=== PATIENT | female | born 1975 ===

== ENCOUNTER 2016-11-30 15:41 | Emergency (ER) | payer OTHER ==
[2016-11-30 15:41] VITALS: BMI 24.7
--- NOTE | 2016-11-30 16:19 | C.PDOC ---
History Of Present Illness 41 y/o female c/o headache for gradual onset over 3 days. Patient also reports some associated nausea, photophobia, and pain down her left side, including her arm and leg, which is causing her trouble when ambulating. Patient with history of elevated prolactin and pituitary microadenoma, elevated blood pressure. Patient states she recently stopped all regular medications and currently not taking anything. Patient notes she has not taken anything for current headache. Otherwise, denies fever, chills, new weakness or numbness, vomiting, or other associated symptoms. Patient with history of migraine headaches. Time Seen by Provider: 11/30/16 15:56 Chief Complaint (Nursing): Headache History Per: Patient History/Exam Limitations: no limitations Onset/Duration Of Symptoms: Days Current Symptoms Are (Timing): Still Present Preceeding Symptoms: None, Known Migraine Symptoms. denies: Visual Disturbances Associated Symptoms: Photophobia, Nausea. denies: Vomiting, Extremity Weakness Recent travel outside of the [place]: No Past Medical History Reviewed: Historical Data, Nursing Documentation, Vital Signs Vital Signs: Last Vital Signs Temp 100.7 F H 11/30/16 15:44 Pulse 82 11/30/16 19:02 Resp 20 11/30/16 19:02 BP 114/78 11/30/16 19:02 Pulse Ox 98 11/30/16 19:26 - Medical History PMH: Asthma, HTN, Hypothyroidism, Migraine - [facility] Procedures ASPIRATION OF BREAST (01/30/14) DX ULTRASOUND-THORAX NEC (01/30/14) LAPAROSCOP LYSIS-PERITONEAL ADHES (08/07/13) LAPAROSCOP UNILAT OOPHORECTOMY (08/07/13) Family History: States: Unknown Family Hx - Social History Hx Tobacco Use: No Hx Alcohol Use: No Hx Substance Use: No - Immunization History Hx Tetanus Toxoid Vaccination: No Hx Influenza Vaccination: Yes Hx Pneumococcal Vaccination: No Review Of Systems Except As Marked, All Systems Reviewed And Found Negative. Constitutional: Negative for: Fever, Chills Cardiovascular: Negative for: Chest Pain Respiratory: Negative for: Cough, Shortness of Breath, Wheezing Gastrointestinal: Positive for: Nausea. Negative for: Vomiting, Abdominal Pain Musculoskeletal: Negative for: Neck Pain Skin: Negative for: Rash Neurological: Positive for: Headache. Negative for: Weakness, Numbness, Dizziness Physical Exam - Physical Exam Appears: Non-toxic, No Acute Distress Skin: Warm, Dry Head: Atraumatic, Normacephalic Eye(s): bilateral: PERRL, EOMI, Photophobia, Other (pain with left lateral gaze) Ear(s): Bilateral: Normal Nose: Normal Oral Mucosa: Moist Neck: Normal ROM, Supple Chest: Symmetrical Cardiovascular: Rhythm Regular Respiratory: Normal Breath Sounds, No Rales, No Rhonchi, No Wheezing Gastrointestinal/Abdominal: Soft, No Tenderness, No Guarding, No Rebound Back: Normal Inspection Extremity: Normal ROM, Capillary Refill (< 2 sec.) Neurological/Psych: Oriented x3, Normal Speech, Normal Cognition, Normal Cranial Nerves, Normal Motor, Normal Sensation ED Course And Treatment - Laboratory Results Result Diagrams: 11/30/16 16:33 11/30/16 16:33 Lab Interpretation: Normal O2 Sat by Pulse Oximetry: 98 (RA) Pulse Ox Interpretation: Normal - CT Scan/US MRI Pituitary Other Rad Studies (CT/US): Read By Radiologist, Radiology Report Reviewed CT/US Interpretation: FINDINGS: Brain: The optic chiasm is unremarkable without distortion or masses. No hemorrhage. No acute. infarct. Ventricles: Unremarkable. No ventriculomegaly. Bones/joints: Unremarkable. Sinuses: Unremarkable as visualized. No acute sinusitis. Mastoid air cells: Unremarkable as visualized. No mastoid effusion. Orbits: Unremarkable as visualized. Sella: The pituitary gland measures approximately 6.3 x 6.0 x 10 millimeter. The pituitary stalk. appears normal. There is no deviation of the pituitary stalk. No suprasellar masses seen. The. pituitary gland with homogeneous enhancement. No focal lesions are seen. IMPRESSION: No acute findings. No pituitary masses or focal lesions are seen. Enhancement of the pituitary gland. is homogeneous. No suprasellar masses. Progress Note: Treated with Tylenol and Ativan. Pituitary MRI ordered and reviewed. Reevaluation Time: 19:27 Reassessment Condition: Improved (Has mild residual headache but feels much better.) Disposition Counseled Patient/Family Regarding: Studies Performed, Diagnosis, Need For Followup - Disposition Referrals: Jennie Chu MD [Staff Provider] - Disposition: HOME/ ROUTINE Disposition Time: 19:28 Condition: IMPROVED Instructions: Acute Headache (ED) Print Language: PASHTO - Clinical Impression Clinical Impression: Headache - Scribe Statement The provider has reviewed the documentation as recorded by the Scribe Markel Gonzalezussa All medical record entries made by the Linda were at my direction and personally dictated by me. I have reviewed the chart and agree that the record accurately reflects my personal performance of the history, physical exam, medical decision making, and the department course for this patient. I have also personally directed, reviewed, and agree with the discharge instructions and disposition.
[2016-11-30 16:39] LABS: HEMOGLOBIN 13.1 g/dL (11.0-16.0); MEAN PLATELET VOLUME 9.1 fL (7.2-11.7); WHITE BLOOD COUNT 4.8 K/uL (4.8-10.8)
[2016-11-30 16:50] LABS: ALBUMIN 4.6 g/dL (3.5-5.0)
[2016-11-30 16:52] LABS: AST/SGOT 39 U/L (14-36); GFR AFRICAN-AMERICAN > 60; GFR NON-AFRICAN AMERICAN > 60
[2016-11-30 16:53] LABS: ALB/GLOB RATIO 1.2 (1.0-2.1); ALT/SGPT 38 U/L (9-52); BASO % 0.5 % (0.0-2.0); BLOOD UREA NITROGEN 8 mg/dL (7-17); CALCIUM 8.7 mg/dl (8.6-10.4); EOS % 0.2 % (0.0-4.0); LYMPH % 20.9 % (20.0-40.0); MEAN CELL VOLUME 86.4 fL (81.0-99.0); MEAN CORPUSCULAR HEMOGLOBIN 28.3 pg (27.0-31.0); MEAN CORPUSCULAR HGB CONC 32.8 g/dL (33.0-37.0); MONO # 0.9 K/uL (0.0-0.8); MONO % 18.6 % (0.0-10.0); NEUT # 2.9 K/uL (1.8-7.0); NEUT % 59.8 % (50.0-75.0); NRBC % 0.2 % (0.0-2.0); RBC 4.65 Mil/uL (3.80-5.20); RED CELL DISTRIBUTION WIDTH 12.6 % (11.5-14.5)
[2016-11-30] MEDS ORDERED: Gadodiamide 287 MG/ML VIAL (15ML) IV ONE (18:25)
[2016-11-30 19:02] VITALS: BP 114/78; PULSE 82; RESP 20
[2016-11-30 19:26] VITALS: O2SAT 98
[2016-11-30 19:42] VITALS: TEMP 97.9
--- NOTE | 2016-12-01 14:11 | MRI ---
PROCEDURE: MRI BRAIN AND PITUITARY WITH AND WITHOUT CONTRAST HISTORY: Hx microadenoma, recent headache COMPARISON: 09/09/2015 TECHNIQUE: Multiplanar, multisequence MR images of the pituitary glad were obtained, including high resolution sagittal T2 and dynamic, multiphasic contrast coronal T1 weighted images of the sellar turcica. FINDINGS: PITUITARY GLAND: The pituitary gland is normal in size. There is redemonstration of a 4 x 11 x 8 mm T1 hyperintense and T2 hypointense relatively hypoenhancing lesion in the midline and to the left within the pituitary gland, not significantly changed since the prior examination. OPTIC CHIASM: The optic chiasm is normal in appearance. SUPRASELLAR CISTERN: Normal. CAVERNOUS SINUSES: There are normal signal voids in the cavernous carotid arteries. There is normal enhancement in the cavernous sinuses. VENTRICLES: No hydrocephalus. OTHER FINDINGS: None. IMPRESSION: Little interval change in known 4 x 11 x 8 mm hyper enhancing lesion in the midline and to the left of the pituitary gland. The differential considerations include Rathke's cleft cyst and hemorrhage in a microadenoma or pituitary gland. There is a discrepancy with preliminary [facility] report. The final report was discussed with CASIE Barton on 12/01/2016 at 2:05 p.m.
== END 2016-11-30 19:41 | disposition home or self-care (01) ==
LOC: C.ER 15:41
DX: R51 Headache (principal)
CPT/HCPCS: 70553; 80053; 84703; 85025; 96374; 99285; A9579; J2060

== ENCOUNTER 2017-06-23 11:21 | Emergency (ER) | payer OTHER ==
[2017-06-23 11:21] VITALS: BMI 24.7
[2017-06-23 11:55] VITALS: O2SAT 100
--- NOTE | 2017-06-23 12:39 | C.PDOC ---
History Of Present Illness 41 year old female presents to the ED c/o left shoulder pain radiating to her upper left back for the past 3 days. 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 Patient denies fever, chills, recent fall, injury, trauma, weakness, numbness. Chief Complaint (Nursing): Upper Extremity Problem/Injury History Per: Patient History/Exam Limitations: no limitations Onset/Duration Of Symptoms: Days Current Symptoms Are (Timing): Still Present Quality: "Pain" Exacerbating Factor(s): Movement Recent travel outside of the [place]: No Additional History Per: Patient Past Medical History Reviewed: Historical Data, Nursing Documentation, Vital Signs Vital Signs: Last Vital Signs Temp 97.4 F L 06/23/17 14:10 Pulse 57 L 06/23/17 14:10 Resp 18 06/23/17 14:10 BP 122/83 06/23/17 14:10 Pulse Ox 100 06/23/17 14:10 - Medical History PMH: Asthma, HTN (No Meds), Hypothyroidism, Migraine Surgical History: No Surg Hx - [facility] Procedures ASPIRATION OF BREAST (01/30/14) DX ULTRASOUND-THORAX NEC (01/30/14) LAPAROSCOP LYSIS-PERITONEAL ADHES (08/07/13) LAPAROSCOP UNILAT OOPHORECTOMY (08/07/13) Family History: States: Unknown Family Hx - Social History Hx Tobacco Use: No Hx Alcohol Use: Yes Hx Substance Use: No - Immunization History Hx Tetanus Toxoid Vaccination: No Hx Influenza Vaccination: No Hx Pneumococcal Vaccination: No Review Of Systems Constitutional: Negative for: Fever, Chills Cardiovascular: Negative for: Chest Pain Respiratory: Negative for: Cough, Shortness of Breath Gastrointestinal: Negative for: Nausea, Vomiting, Abdominal Pain Musculoskeletal: Positive for: Shoulder Pain (left), Back Pain Skin: Negative for: Rash Neurological: Negative for: Weakness, Numbness, Headache, Dizziness Physical Exam - Physical Exam Appears: Non-toxic, No Acute Distress Skin: Normal Color, Warm, Dry Head: Atraumatic, Normacephalic Eye(s): bilateral: Normal Inspection Nose: No Discharge, No Deformity Back: Other (trapezius muscle tenderness ) Extremity: No Normal ROM (Limited left shoulder secondary to pain), Tenderness ( extremely all over left shoulder, mostly posterior area), Capillary Refill (< 2 seconds), No Deformity, No Swelling Neurological/Psych: Oriented x3, Normal Speech, Normal Cognition Gait: Steady ED Course And Treatment O2 Sat by Pulse Oximetry: 100 (On RA) Pulse Ox Interpretation: Normal - Other Rad left shoulder xray X-Ray: Viewed By Me, Read By Radiologist Interpretation: Accession No. : [id number]. Patient Name / ID : RUPA FAUSTIN / [id number]. Exam Date : 06/23/2017 12:06:19 ( Approved ). Study Comment : Sex / Age : F / 41Y. Creator : Suad Casey MD. Dictator : Suad Casey MD. Sanitation Supervisor : Sliver Cutter : Suad Casey MD. Approver2 : Report Date : 06/23/2017 12:53:28. My Comment : . PROCEDURE: Radiographs of the Left Shoulder. HISTORY: atraumatic pain. COMPARISON: None available. FINDINGS: BONES: No acute displaced fracture. The distal clavicle and underlying ribs appear intact. JOINTS: No acute dislocation. SOFT TISSUES: Soft tissues appear unremarkable. No evidence of radiopaque foreign body. IMPRESSION: No acute findings identified. Progress Note: Toradol IM given with improvement. Arm sling was applied. patient is stable to be d/ home with Ortho follow up. Medical Decision Making Medical Decision Making: Impression : left shoulder pain Plan: * X-Ray left shoulder * Toradol 60 mg IM Disposition - Disposition Referrals: Beverley Medina MD [Staff Provider] - Disposition: HOME/ ROUTINE Disposition Time: 14:03 Condition: STABLE Additional Instructions: Follow up with PMD within 1-2 days. Return to ED if feel worse. 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 - Scribe Statement The provider has reviewed the documentation as recorded by the Scribe Ashish Smith All medical record entries made by the Scribe were at my direction and personally dictated by me. I have reviewed the chart and agree that the record accurately reflects my personal performance of the history, physical exam, medical decision making, and the department course for this patient. I have also personally directed, reviewed, and agree with the discharge instructions and disposition.
--- NOTE | 2017-06-23 12:54 | RAD ---
PROCEDURE: Radiographs of the Left Shoulder HISTORY: atraumatic pain COMPARISON: None available. FINDINGS: BONES: No acute displaced fracture. The distal clavicle and underlying ribs appear intact. JOINTS: No acute dislocation. SOFT TISSUES: Soft tissues appear unremarkable. No evidence of radiopaque foreign body. IMPRESSION: No acute findings identified.
[2017-06-23 14:10] VITALS: BP 122/83; PULSE 57; RESP 18; TEMP 97.4
== END 2017-06-23 14:10 | disposition home or self-care (01) ==
LOC: C.ER 11:21
DX: M25.512 Pain in left shoulder (principal)
CPT/HCPCS: 73030; 96372; 99285; J1885

== ENCOUNTER 2017-11-03 10:50 | Emergency (ER) | payer OTHER ==
[2017-11-03 10:50] VITALS: BMI 26.8
[2017-11-03] MEDS ORDERED: Lidocaine 5% Patch TD STA (11:48)
[2017-11-03] MEDS ORDERED: Lidocaine 5% Patch TD ONE (12:11)
--- NOTE | 2017-11-03 14:05 | C.PDOC ---
History Of Present Illness 42-year-old female, presents to the emergency department with complaints of right lower back pain that radiates to buttock and back of right leg. She denies any numbness/weakness, bladder/bowel incontinence, symptoms, nausea/ vomiting, fever or chills. No other complaints at this time. Chief Complaint (Nursing): Back Pain History Per: Patient History/Exam Limitations: no limitations Current Symptoms Are (Timing): Still Present Past Medical History Reviewed: Historical Data, Nursing Documentation, Vital Signs Vital Signs: Last Vital Signs Temp 98.3 F 11/03/17 14:52 Pulse 61 11/03/17 14:52 Resp 18 11/03/17 14:52 BP 122/77 11/03/17 14:52 Pulse Ox 100 11/03/17 14:52 - Medical History PMH: Asthma, HTN (No Meds), Hypothyroidism, Migraine - [facility] Procedures ASPIRATION OF BREAST (01/30/14) DX ULTRASOUND-THORAX NEC (01/30/14) LAPAROSCOP LYSIS-PERITONEAL ADHES (08/07/13) LAPAROSCOP UNILAT OOPHORECTOMY (08/07/13) Family History: States: No Known Family Hx - Social History Hx Tobacco Use: No Hx Alcohol Use: Yes Hx Substance Use: No - Immunization History Hx Tetanus Toxoid Vaccination: No Hx Influenza Vaccination: No Hx Pneumococcal Vaccination: No Review Of Systems Constitutional: Negative for: Fever, Chills Gastrointestinal: Negative for: Nausea, Vomiting, Abdominal Pain Genitourinary: Negative for: Dysuria, Incontinence Musculoskeletal: Positive for: Back Pain, Leg Pain Skin: Negative for: Rash Neurological: Negative for: Weakness, Numbness Physical Exam - Physical Exam Appears: Well, Non-toxic, No Acute Distress Skin: Normal Color, Warm, Dry, No Rash Head: Atraumatic, Normacephalic Eye(s): bilateral: Normal Inspection Nose: Normal Oral Mucosa: Moist Lips: Normal Appearing Neck: Normal ROM Respiratory: No Accessory Muscle Use Gastrointestinal/Abdominal: Soft, No Tenderness Back: Straight Leg Raising, Other (right lower veneer glue jointer feedback) Extremity: No Deformity, No Swelling, Other (tenderness to right buttock and posterior right thigh) Neurological/Psych: Oriented x3, Normal Speech ED Course And Treatment O2 Sat by Pulse Oximetry: 98 Medical Decision Making Medical Decision Making: Impression: Sciatica Plan: * Lidoderm, Toradol, Valium * Reassess and Disposition Patient is resting comfortably, is no longer having back pain, no fever, no bony tenderness, no numbness, no weakness, or abdominal pain. Patient is ambulatory in the emergency department with no signs of discomfort. Patient was advised to follow up with their physician in 1-2 days. Disposition - Disposition Referrals: [facility] [Outside] Disposition: HOME/ ROUTINE Disposition Time: 14:44 Condition: STABLE Additional Instructions: Follow up in Clinic within 2-3 days. Return to ED if feel worse. Prescriptions: Lidocaine 4% [Lidocaine 4% 50 ml Topical (or)] 1 appl TOP QID #1 bottle Ibuprofen [Motrin Tab] 600 mg PO Q8 #30 tab diaZEpam [Valium] 2 mg PO TID #15 tab Instructions: Sciatica (DC), Sciatica Exercises Forms: [employer] (Venezuelan) Print Language: LITHUANIAN - Clinical Impression Clinical Impression: Sciatica - Scribe Statement The provider has reviewed the documentation as recorded by the Scribe (Roverto Ferraro) All medical record entries made by the Scribe were at my direction and personally dictated by me. I have reviewed the chart and agree that the record accurately reflects my personal performance of the history, physical exam, medical decision making, and the department course for this patient. I have also personally directed, reviewed, and agree with the discharge instructions and disposition.
[2017-11-03 14:53] VITALS: BP 122/77; PULSE 61; RESP 18; TEMP 98.3
[2017-11-03 15:21] VITALS: O2SAT 98
== END 2017-11-03 15:01 | disposition home or self-care (01) ==
LOC: C.ER 10:50
DX: M54.30 Sciatica, unspecified side (principal)
CPT/HCPCS: 96372; 99284; J1885

== ENCOUNTER 2017-11-25 11:36 | Emergency (ER) | payer OTHER ==
[2017-11-25 11:37] VITALS: BMI 26.8
[2017-11-25 11:53] VITALS: PULSE 92; RESP 18; TEMP 98.2; O2SAT 100
--- NOTE | 2017-11-25 13:02 | C.PDOC ---
History Of Present Illness 42 y/o female with hypothryoidism c/o bilateral shoulder and arm pain x 2 months ; pt sts sometimes has numb/tingly sensation in right hand, especially at night. 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 pt taking motrin 800 with mild relief. denies neck pain. pt also has pain in upper bilateral neck area. Time Seen by Provider: 11/25/17 12:09 Chief Complaint (Nursing): Upper Extremity Problem/Injury History Per: Patient History/Exam Limitations: no limitations Onset/Duration Of Symptoms: Days (60) Current Symptoms Are (Timing): Still Present Quality: "Pain" Severity: Moderate Exacerbating Factor(s): Strenuous Use Of Affected Area, Movement, Worse At Night Past Medical History Reviewed: Historical Data, Nursing Documentation, Vital Signs Vital Signs: Last Vital Signs Temp 98.2 F 11/25/17 11:50 Pulse 92 H 11/25/17 11:50 Resp 18 11/25/17 11:50 BP Pulse Ox 100 11/25/17 13:28 - Medical History PMH: Asthma, HTN (No Meds), Hypothyroidism, Migraine - [facility] Procedures ASPIRATION OF BREAST (01/30/14) DX ULTRASOUND-THORAX NEC (01/30/14) LAPAROSCOP LYSIS-PERITONEAL ADHES (08/07/13) LAPAROSCOP UNILAT OOPHORECTOMY (08/07/13) Family History: States: Unknown Family Hx - Social History Hx Tobacco Use: No Hx Alcohol Use: Yes Hx Substance Use: No - Immunization History Hx Tetanus Toxoid Vaccination: No Hx Influenza Vaccination: No Hx Pneumococcal Vaccination: No Review Of Systems Constitutional: Negative for: Fever, Chills Cardiovascular: Negative for: Chest Pain Musculoskeletal: Positive for: Shoulder Pain, Arm Pain. Negative for: Neck Pain Skin: Negative for: Rash Neurological: Positive for: Numbness (change in sensation). Negative for: Weakness Physical Exam - Physical Exam Appears: Non-toxic, No Acute Distress Skin: Warm, Dry, No Rash Head: Atraumatic, Normacephalic Neck: No Midline Cervical Tenderness, Paracervical Tenderness (and bilateral trapezius tenderness), Supple Extremity: Other (tenderness to right upper arm and shoulder area, dec rom 2/2 pain, no swelling, erythema or warmth. normal rom at elbow and wrist. +tinel test right wrist. ) Extremity: Bilateral: Atraumatic Pulses: Left Radial: Normal, Right Radial: Normal Neurological/Psych: Oriented x3, Normal Speech, Normal Cognition, Normal Motor, Normal Sensation ED Course And Treatment O2 Sat by Pulse Oximetry: 100 Medical Decision Making Medical Decision Making: wrist splint applied with mild decrease in pain. pt to be discharged with tylenol, nsaid and flexeril, FU med clinc Disposition Counseled Patient/Family Regarding: Diagnosis, Need For Followup, Rx Given - Disposition Referrals: Jennie Chu MD [Staff Provider] - [facility] at [facility] [Outside] Disposition: HOME/ ROUTINE Disposition Time: 13:01 Condition: GOOD Additional Instructions: [place] ibuprofeno cada 6-8 horas con comida. [place] relajante muscular solo cuando est en casa, no cuando est trabajando, ya que le da sueo. Compresas tibias en el petra bilateral superior del hombro varias veces al da. Lucrecia un seguimiento con el Dr. Chu / moe vargasica la prxima semana para la evaluaci n del dolor en el brazo y para controlar la tiroides. . Use frula para la mu eca para ayudar con el dolor de la mueca. Take ibuprofen every 6-8 hours with food. Take muscle relaxant only when at home , not when working, since makes you sleepy. Warm compresses to upper bilateral shoulder area several times a day. Follow up with Dr Chu/medical clinic next week for evaluation of arm pain and to check thyroid. . Wear wrist splint to help with wrist pain. Prescriptions: Acetaminophen [Tylenol 325mg tab] 650 mg PO Q4 #50 tab Cyclobenzaprine [Cyclobenzaprine HCl] 10 mg PO Q8 #9 tab Ibuprofen [Motrin] 600 mg PO TID #30 tab Instructions: Carpal Tunnel Syndrome (DC), Muscle Strain (DC) Forms: Gen Discharge Inst Ecuadorean, [email or web address] (Ecuadorean) Print Language: TOGOLESE - Clinical Impression Clinical Impression: Bilateral arm pain, Carpal tunnel syndrome on right
[2017-11-26] MEDS ORDERED: Acetaminophen 650mg/20.3ml solution UD PO STA (23:07)
== END 2017-11-25 13:24 | disposition home or self-care (01) ==
LOC: C.ER 11:36
DX: M79.602 Pain in left arm (principal); M79.601 Pain in right arm; G56.01 Carpal tunnel syndrome, right upper limb; I10 Essential (primary) hypertension; E03.9 Hypothyroidism, unspecified